=== PATIENT | female | born 1980 | race African-American/Black ===

== ENCOUNTER 2018-05-20 00:56 | Outpatient (CLI) | payer BC ==
[2018-05-20 15:56] LABS: Mean Corpuscular Hemoglobin 25.9 pg (27.0-31.0); Mean Corpuscular Volume 83.7 fL (78.0-98.0); Mean Platelet Volume 9.3 fL (7.4-10.4); Platelet Count 219 thou/uL (130-400); RBC Distribution Width 12.7 % (11.5-14.5); Red Blood Cell (RBC) Count 4.23 mill/uL (4.20-5.40); White Blood Cell (WBC) Count 6.7 thou/uL (4.8-10.8)
== END 2018-05-20 00:57 | disposition home or self-care (01) ==
LOC: LABBT 00:56 → EDSTATUS 15:00
PROVIDERS: ATTEND Obstetrics & Gynecology
DX: Z01.812 Encounter for preprocedural laboratory examination (principal); D25.9 Leiomyoma of uterus, unspecified; N92.0 Excessive and frequent menstruation with regular cycle; R10.2 Pelvic and perineal pain
CPT/HCPCS: 85027; 86850; 86900; 86901

== ENCOUNTER 2018-05-21 05:54 | Inpatient (IN) | payer BC ==
--- NOTE | 2018-05-17 10:53 | HP ---
She is scheduled for surgery on 05/21/2018. HISTORY OF PRESENT ILLNESS: Ms. Boone is a 37-year-old female G3, P2, A1, who has symptomatic uterine fibroids. She has very heavy menstrual bleeding where she does her pad and tampon soakage in 1 hour at times. She is also having significant dysmenorrhea associated with this and also chronic left lower quadrant pain. She has had a CT scan along with an ultrasound confirming her uterus to be 10.7 cm with a 2 cm submucosal fibroid along with an 8 x 6.6 cm left exophytic fibroid. She is desiring definitive surgical therapy. Her past surgical history has been a Lap-Band and Lap BTL along with a laparoscopic cholecystectomy. ALLERGIES: SHE HAS NO KNOWN DRUG ALLERGIES. MEDICATIONS: She does not take any medications regularly except p.r.n. ibuprofen for pain. SOCIAL HISTORY: She is a nonsmoker. FAMILY HISTORY: No significant family history including no ovarian cancer history. OB HISTORY: She has had two spontaneous vaginal deliveries. Most recent Pap smear was normal with negative HPV testing in March 2017. PHYSICAL EXAMINATION: VITAL SIGNS: Her height is 5 feet 2 inches, weight 255. Pulse is 67 and regular, blood pressure 138/84, O2 sats 99%. HEENT: Within normal limits. CHEST: Clear to auscultation. HEART: Regular rate and rhythm. S1 and S2 heart sounds. No murmurs, rubs, or gallops. ABDOMEN: Soft, nontender, well-healed trocar sites from previous surgery. PELVIC: Vulva and vagina had no lesions. Cervix had no lesions. Uterus was enlarged 14-16 week size, mostly with a left posterior lower quadrant fibroid being palpated. There was no adnexal masses. ASSESSMENT: This is a 37-year-old female with symptomatic 14-16 week uterine fibroids including an 8 cm exophytic left lower quadrant fibroid, desiring definitive surgical therapy. PLAN: Plan is to proceed with robotic total laparoscopic hysterectomy with bilateral salpingectomy. Plan for ovarian preservation. We will also remove the specimen via the ExCITE procedure. Risks and benefits of surgery were discussed in detail, set for surgery on 05/21. Job ID: [id number]
[2018-05-20 15:25] VITALS: BMI 47.5
[2018-05-21] MEDS ORDERED: Gabapentin 300 MG CAP ONE (06:10)
[2018-05-21] MEDS ORDERED: CeleCOXIB 100 MG CAP ONE (06:10)
[2018-05-21] MEDS ORDERED: Famotidine/PF 20 mg/2ml Vial ONE (06:11)
[2018-05-21] MEDS ORDERED: ceFAZolin Sodium 2 GM/100 ML BAG ONE (06:11)
[2018-05-21] MEDS ORDERED: Fentanyl 250 MCG/5 ML VIAL ONE (06:27)
[2018-05-21] MEDS ORDERED: Bupivacaine HCl 0.5%/Epinephrine 1:200,000/PF 30 ml Vial ONE (06:37)
[2018-05-21] MEDS ORDERED: Midazolam HCl 2 mg/2 ml Vial ONE (06:56)
[2018-05-21] MEDS ORDERED: Scopolamine 1.5 mg/72 hour Patch ONE (06:56)
[2018-05-21] MEDS ORDERED: Promethazine HCl 25 MG/ML VIAL SLOW IVP PRN (08:09)
[2018-05-21] MEDS ORDERED: Promethazine HCl 25 MG/ML VIAL IM PRN ×2 (08:09→12:42)
[2018-05-21] MEDS ORDERED: Ondansetron HCl/PF 4 MG/2 ML Vial IVP PRN (08:09)
[2018-05-21] MEDS ORDERED: Meperidine HCl/PF 25 MG/ML VIAL SLOW IVP PRN (08:09)
[2018-05-21] MEDS ORDERED: Fentanyl 100 MCG/2 ML VIAL ONE ×2 (09:35→11:33)
[2018-05-21] MEDS ORDERED: traMADol HCl 50 MG TAB PO PRN (12:42)
[2018-05-21] MEDS ORDERED: Morphine 4 MG/ML VIAL SLOW IVP PRN ×2 (12:42→16:12)
[2018-05-21] MEDS ORDERED: diphenhydrAMINE 25 MG CAP PO PRN (12:42)
[2018-05-21] MEDS ORDERED: Zolpidem Tartrate 5 MG TAB PO PRN (12:42)
[2018-05-21] MEDS ORDERED: Ondansetron PF 4 MG/2 ML Vial IVP PRN (12:42)
[2018-05-21] MEDS ORDERED: Simethicone Chewable 80 MG TAB PO PRN (12:42)
[2018-05-21] MEDS ORDERED: Bisacodyl 10 MG SUPP PR PRN (12:42)
[2018-05-21] MEDS ORDERED: Ketorolac Tromethamine 30 MG/ML VIAL IVP SCH (12:45)
--- NOTE | 2018-05-21 12:58 | OP ---
DATE OF PROCEDURE: 05/21/2018 PREOPERATIVE DIAGNOSES: 1. A 37-year-old female with symptomatic uterine fibroids. 2. She has exophytic 8 cm left lower quadrant posterior fibroid with pelvic pain and menorrhagia. POSTOPERATIVE DIAGNOSES: 1. A 37-year-old female with symptomatic uterine fibroids. 2. She has exophytic 8 cm left lower quadrant posterior fibroid with pelvic pain and menorrhagia. PROCEDURES PERFORMED: 1. Robotic total laparoscopic hysterectomy, bilateral salpingectomy. 2. ExCITE removal of the uterine specimen. PIPELINES SUPERVISOR SURGEON: Yecenia Chauhan MD ANESTHESIA: General endotracheal. ESTIMATED BLOOD LOSS: 25 mL. COMPLICATIONS: None. COUNTS: Correct x2. ANTIBIOTICS: 2 g Ancef, on-call to OR. FINDINGS: 1. Normal bilateral fallopian tubes and ovaries. 2. Enlarged uterus with what appeared to be a subserosal 8 cm left posterior fibroid with pelvic adhesions from inflammatory reaction of the fibroid. Status post lysis of adhesions. 3. Clear urine present in Anderson catheter postprocedure and bilateral ureteral peristalsis noted postprocedure. PATHOLOGY: Uterus, cervix, bilateral fallopian tubes, and fibroid. DISPOSITION: Recovery room, stable. DESCRIPTION OF PROCEDURE: The patient previously received informed consent in regard to surgery. She was taken back to the operating room, where she received a general endotracheal anesthetic agent without complications. She was placed in the dorsal lithotomy position with use of Remy stirrups and prepped and draped in usual sterile fashion. At this time, a Anderson catheter was placed. A sidearm speculum was placed in the vagina. Anterior lip of the cervix was grasped with a single-toothed tenaculum and the uterus sounded to 12 cm. A size 10 cm BALWINDER uterine manipulator with a 4.0 cm cup was placed. Tenaculum and speculum were then removed. Attention was then turned to the abdomen, where perspective trocar sites were infiltrated with 0.5% Marcaine with epinephrine. A supraumbilical incision was made 12 mm and a Veress needle was entered into the peritoneal cavity. The abdomen was insufflated with the patient's pressure of 15. After proper entry was confirmed and the 12 mm trocar was placed in the supraumbilical incision with placement of the scope through the trocar sleeve confirming proper entry. An 8 mm right lower quadrant trocar was placed under laparoscopic guidance and in the left lower quadrant, the laparoscope was placed under laparoscopic guidance. I used the Endo Yovanny this time to take down some omental adhesions in the right upper quadrant due to the previous lap band and cholecystectomy to enable us to put the right upper quadrant events and promotions assistant port. This was taken down under direct visualization. Once this was cleared, the 11 mm events and promotions assistant port was placed in the right upper quadrant. We then extended the supraumbilical incision to approximately 2.5 cm and then placed the GelPOINT for the trocar site and then the trocar sleeve was placed through the GelPOINT and then the scope was placed through this and the patient was placed in Trendelenburg position. Robot was docked in usual fashion. Then, I proceeded to carry out the surgery from the operative console while my assistants remained at the bedside. The uterus was elevated from the pelvis. Inspection of the posterior fibroid was confirmed and location of the left ureter was also visualized and its pass was noted. There were filmy adhesions in the posterior aspect of the left uterine fibroid and this was taken down both sharply and bluntly with the monopolar scissors and the bipolar fenestrated cautery with a spreading effect, which fibroid from the left pelvic sidewall. The ureter was noted to be running laterally inferior. Then, continued to dissect the adhesions off the fibroid, mobilizing the fibroid. Then, we took the left fallopian tube off, cauterizing the mesosalpinx, incising with the monopolar scissors and pulled the tube through the right upper quadrant events and promotions assistant port. Then, the left utero-ovarian ligament was coagulated, transected, and then the left round ligament was coagulated and transected. This allowed for then dissection of the broad ligament over the fibroid and both sharply and bluntly enabling mobilization of the uterine fibroid away from the pelvic sidewall and this enabled us to then skeletonized the left uterine vessels that was inferior to this and dropped the vesicouterine peritoneum past the cervical vaginal angle and the cervical cup, which was noted on with the manipulator. The uterus was deflected to the patient's right side, dropping the left pelvic sidewall away from the specimen. Continued skeletonization of the uterine vessels, dropped the fold of peritoneum laterally away from the uterine specimen. The uterine vessels were then coagulated in internal cervical os region on the left side. The right fallopian tube was then grasped by my events and promotions assistant. The mesosalpinx was cauterized and transected and the tube was removed up in the right upper quadrant events and promotions assistant port. Again, the right utero-ovarian ligaments were coagulated and transected. Serial coagulation of the broad ligament hugging the posterior uterus was carried out until the right round ligament was reached. It was coagulated and transected. The anterior leaf of the broad ligament again was entered and the vesicouterine peritoneum was incised in layering technique dropping the bladder atraumatically past the cervical vaginal junction. Again, the right uterine vessels were skeletonized both anteriorly and posteriorly and they were cauterized in the internal cervical os region. Once this had been accomplished, the fibroids had been freed from the pelvic sidewall on its entirety. This allowed for mobilization of the uterus anteriorly, and then creation of the posterior colpotomy was performed from 6 to 3 and 6 to 9 o'clock with the monopolar scissors. The anterior colpotomy was completed from 12 to 3 and 12 to 9 o'clock again coagulating the uterine artery vessels inside the cup for hemostasis. This allowed then for delivery of the specimen and this was taken off the BALWINDER uterine manipulator end and the specimen was placed in the abdominal cavity and the BALWINDER uterine manipulator was pulled out. The vagina was packed to continue the pneumoperitoneum. The vaginal cuff was inspected and cauterized of any remaining oozing areas and monopolar scissor has been switched for a Sha needle boat driver. A Stratafix was then passed into the pelvis by my events and promotions assistant and I closed the vaginal cuff in full-thickness closure starting right angle back to the left angle and back towards the midline with good hemostasis noted. All pedicle sites were inspected after irrigation and confirmed to be hemostatic. Clear urine was draining from the Anderson catheter and bladder was watertight to distention of 300 mL. Bilateral ureteral peristalsis was also visualized on both pelvic sidewalls. The endobag which had been placed when the GelPOINT had been placed in the right upper quadrant was then brought down into the pelvis. The stay closure sutures were then cut by my events and promotions assistant after we aligned the bag in the appropriate position. The specimen was then placed inside the endobag and the pre-tied loop and the string was brought through the loop to secure the specimen by use of the bipolar fenestrated and the needle boat driver. Then, my events and promotions assistant placed a [place] grasper through the GelPOINT and grabbed the closure string from the specimen bag and this was brought up towards the GelPOINT port. We undocked the robot and then the trocar sleeves were removed. The GelPOINT was then taken off in the specimen bag, was then delivered through the fascial defect. We then placed the small Layo O retractor inside the Aces bag to protect the bag while we did the morcellation. The specimen was then morcellated with the C-cutting technique with scalpel in a piecemeal fashion, delivering all the contents and tags inside the bag and then the bag was delivered. The fascial defect in the supraumbilical area was closed with a running 0 Vicryl suture with good approximation of the fascia. The remainder of the trocar sites were then closed with 4-0 Monocryl suture with Dermabond. The surgery was then terminated. No anesthetic or surgical complications. The vaginal cuff was inspected vaginally and was noted to be hemostatic. Job ID: [id number]
[2018-05-21] MEDS: Acetaminophen 1,000 MG in Premix Bag 1 BAG IVPB SCH ×2 (13:01→18:21)
[2018-05-21] MEDS: Lactated Ringer's 1,000 ML IV SCH ×3 (13:01→22:08)
[2018-05-21] MEDS ORDERED: Rocuronium Bromide 10 MG/ML (10ML VIAL) ONE (13:55)
[2018-05-21] MEDS ORDERED: Ondansetron PF 4 MG/2 ML Vial ONE (13:55)
[2018-05-21] MEDS ORDERED: Lidocaine 1% PF 5 ML VIAL ONE (13:55)
[2018-05-21] MEDS ORDERED: Glycopyrrolate 0.2 MG/ML 5 ML SYRINGE ONE (13:55)
[2018-05-21] MEDS ORDERED: Metoclopramide HCl 10 MG/2 ML VIAL ONE (13:55)
[2018-05-21] MEDS ORDERED: PROPOFOL 200 MG/20 ML VIAL ONE (13:55)
[2018-05-21] MEDS ORDERED: Labetalol HCl 100 MG/20 ML VIAL SLOW IVP PRN (17:35)
[2018-05-21] MEDS: Ketorolac Tromethamine 30 MG/ML VIAL IVP SCH (18:18)
[2018-05-21] MEDS: traMADol HCl 50 MG TAB PO PRN (20:41)
[2018-05-22] MEDS: Acetaminophen 1,000 MG in Premix Bag 1 BAG IVPB SCH ×2 (00:31→06:08)
[2018-05-22] MEDS: Ketorolac Tromethamine 30 MG/ML VIAL IVP SCH (00:31)
[2018-05-22] MEDS: traMADol HCl 50 MG TAB PO PRN (04:53)
[2018-05-22 07:07] LABS: Mean Corpuscular HGB CONC 31.7 g/dL (32.0-36.0); Mean Corpuscular Volume 82.2 fL (78.0-98.0); Mean Platelet Volume 9.1 fL (7.4-10.4); Platelet Count 191 thou/uL (130-400); RBC Distribution Width 12.8 % (11.5-14.5); Red Blood Cell (RBC) Count 3.86 mill/uL (4.20-5.40); White Blood Cell (WBC) Count 5.8 thou/uL (4.8-10.8)
[2018-05-22 07:47] VITALS: BP 125/83; TEMP 98.2
[2018-05-22] MEDS ORDERED: Acetaminophen 325 MG TAB PO PRN (08:00)
[2018-05-22] MEDS ORDERED: Ibuprofen 800 MG TAB PO SCH (09:00)
--- NOTE | 2018-05-22 13:02 | DIS ---
DATE OF ADMISSION: 05/21/2018 DATE OF DISCHARGE: 05/22/2018 DIAGNOSES: Symptomatic 14-week uterine fibroids, menorrhagia, and pelvic pain. PROCEDURES PERFORMED: Robotic total laparoscopic hysterectomy, bilateral salpingectomy with extracorporeal C-incision tissue extraction procedure for removal of tissue. SUMMARY OF HOSPITAL COURSE: Ms. Boone is a 37-year-old female, who had a 14-week uterine fibroids that causing menorrhagia and pelvic pain. She underwent definitive surgical therapy on 05/21/2018. Postoperatively, the patient has done well. Vital signs are stable. Hematocrit 31.7%. Postoperatively, she is ambulating, voiding, and tolerating regular diet without difficulty. She is discharged home postop day #1. Discharge medications, tramadol 50 q.6 hours p.r.n. pain, [id number] ibuprofen as directed. She will have a followup in 2 and 6 weeks postop and her pathology is pending at this time. Job ID: [id number]
== END 2018-05-22 10:30 | disposition home or self-care (01) | DRG 743 ==
LOC: SDC 05:54 → EDSTATUS 09:30 → OBSVTOIN 12:07 → 3SE 12:07
PROVIDERS: ADMIT Obstetrics & Gynecology; ATTEND Obstetrics & Gynecology
PROC: 0UT94ZZ Resection of Uterus, Percutaneous Endoscopic Approach (ICD-10-PCS; principal; 2018-05-21)
PROC: 0UT74ZZ Resection of Bilateral Fallopian Tubes, Percutaneous Endoscopic Approach (ICD-10-PCS; 2018-05-21)
PROC: 8E0W4CZ Robotic Assisted Procedure of Trunk Region, Percutaneous Endoscopic Approach (ICD-10-PCS; 2018-05-21)
DX: D25.9 Leiomyoma of uterus, unspecified (principal); N92.0 Excessive and frequent menstruation with regular cycle; R10.2 Pelvic and perineal pain; Z01.812 Encounter for preprocedural laboratory examination
CPT/HCPCS: 36415; 85027; 86850; 86900; 86901; 88307; J0131; J0670; J0690; J1885; J2001; J2250; J2270; J2405; J2704; J2765; J3010; Q9968; S0028

== ENCOUNTER 2021-07-22 13:06 | Outpatient (CLI) | payer BC ==
[2021-07-23 00:01] LABS: SARS-CoV-2 PCR by NAA Not Detected (NotDetected)
== END 2021-07-22 13:07 | disposition home or self-care (01) ==
LOC: LABBT 13:06
PROVIDERS: ATTEND Internal Medicine Gastroenterology
DX: Z20.822 Contact with and (suspected) exposure to COVID-19 (principal)
CPT/HCPCS: U0003; U0005

== ENCOUNTER 2021-07-27 06:01 | Day surgery (SDC) | payer BC ==
[2021-07-25 11:14] VITALS: BMI 58.5
[2021-07-27] MEDS ORDERED: PROPOFOL 200 MG/20 ML VIAL ONE (08:16)
[2021-07-27] MEDS ORDERED: Lidocaine 1% PF 5 ML VIAL ONE (08:16)
== END 2021-07-27 09:18 | disposition home or self-care (01) ==
LOC: SDC 06:01
PROVIDERS: ATTEND Internal Medicine Gastroenterology
PROC: 0D748ZZ Dilation of Esophagogastric Junction, Via Natural or Artificial Opening Endoscopic (ICD-10-PCS; principal; 2021-07-27)
DX: R13.19 Other dysphagia (principal); K21.9 Gastro-esophageal reflux disease without esophagitis; I10 Essential (primary) hypertension; E66.3 Overweight; Z68.43 Body mass index [BMI] 50.0-59.9, adult; Z79.899 Other long term (current) drug therapy
CPT/HCPCS: J2704

== ENCOUNTER 2021-09-27 13:05 | Outpatient (CLI) | payer BC | END 2021-09-27 13:06 | disposition home or self-care (01) | LOC: DTY/OP 13:05 | PROVIDERS: ATTEND Surgery | DX: E66.01 Morbid (severe) obesity due to excess calories (principal); Z68.43 Body mass index [BMI] 50.0-59.9, adult | CPT/HCPCS: 97802 ==

== ENCOUNTER 2021-10-21 07:16 | Outpatient (CLI) | payer BC ==
[2021-10-21 10:38] LABS: #Eosinphils 0.1 10x3/uL (0.0-0.5); #Monocytes 0.5 10x3/uL (0.0-1.1); %Basophils 0.2 % (0.0-2.0); %Eosinophils 1.7 % (0.0-6.0); %Neutrophils 52.9 % (40.0-75.0); Hemoglobin 11.2 g/dL (12.0-15.5); Mean Corpuscular HGB CONC 31.5 g/dL (32.0-36.0); Mean Corpuscular Hemoglobin 24.9 pg (27.0-33.0); Mean Corpuscular Volume 78.9 fl (81.6-98.3); Mean Platelet Volume 12.3 fl (7.4-10.4); Platelet Count 298 10x3/uL (150-450); RBC Distribution Width 15.1 % (11.5-14.5); White Blood Cell (WBC) Count 5.8 10x3/uL (3.5-10.5)
[2021-10-21 10:42] LABS: ALT (SGPT) 23 U/L (8-55); AST (SGOT) 17 U/L (5-34); Alkaline Phosphatase 76 U/L (40-110); Anion Gap 11 mmol/L (10-20); BUN (Urea Nitrogen) 9 mg/dL (7.0-18.7); Bilirubin, Total 0.3 mg/dL (0.2-1.2); Calc. Creatinine Clearance 0 mL/min (70-130); Calcium 9.3 mg/dL (7.8-10.44); Carbon Dioxide 28 mmol/L (22-29); Chloride 101 mmol/L (98-107); Estimated GFR 111; Glucose 82 mg/dL (70-105); Potassium 4.3 mmol/L (3.5-5.1); Sodium 136 mmol/L (136-145)
[2021-10-21 14:17] LABS: Hemoglobin A1c 5.6 % (4.0-6.0)
== END 2021-10-21 07:17 | disposition home or self-care (01) ==
LOC: LABBT 07:16
PROVIDERS: ATTEND Surgery
DX: Z01.818 Encounter for other preprocedural examination (principal); E66.01 Morbid (severe) obesity due to excess calories; Z20.822 Contact with and (suspected) exposure to COVID-19
CPT/HCPCS: 71046; 80053; 83036; 85025; 87811; 93005; 93010

== ENCOUNTER 2021-10-21 08:00 | Inpatient (IN) | payer BC ==
[2021-10-26] MEDS ORDERED: Heparin 5,000 UNITS/ML VIAL ONE (07:38)
[2021-10-26] MEDS ORDERED: Lidocaine 1% MPF 2 ML VIAL ONE (07:39)
[2021-10-26] MEDS ORDERED: Bupivacaine/Epinephrine 0.25% 30 ML VIAL ONE (09:06)
[2021-10-26] MEDS ORDERED: fentaNYL Citrate/PF 100 MCG/2 ML SYRINGE ONE (09:09)
[2021-10-26] MEDS ORDERED: CEFAZOLIN 2 GM VIAL ONE (09:16)
[2021-10-26] MEDS ORDERED: Sodium Chloride 0.9% 100 ML ONE (09:16)
[2021-10-26] MEDS ORDERED: ePHEDrine 50 MG/ML VIAL ONE (09:22)
[2021-10-26] MEDS ORDERED: Ondansetron PF 4 MG/2 ML Vial ONE (09:22)
[2021-10-26] MEDS ORDERED: Glycopyrrolate 0.2 MG/ML 5 ML SYRINGE ONE (09:22)
[2021-10-26] MEDS ORDERED: Rocuronium Bromide 10 MG/ML (10ML VIAL) ONE (09:22)
[2021-10-26] MEDS ORDERED: Dexamethasone 20 MG/5 ML VIAL ONE (09:22)
[2021-10-26] MEDS ORDERED: Succinylcholine 200 MG/10 ml SYRINGE FS ONE (09:22)
[2021-10-26] MEDS ORDERED: PROPOFOL 200 MG/20 ML VIAL ONE (09:22)
[2021-10-26] MEDS ORDERED: Phenylephrine 10 MG/ML VIAL ONE (09:22)
[2021-10-26] MEDS ORDERED: Lidocaine 1% PF 5 ML VIAL ONE (09:22)
[2021-10-26] MEDS ORDERED: Neostigmine Methylsulfate 3 MG/3 ML SYRINGE ONE (09:22)
[2021-10-26] MEDS ORDERED: HYDROmorphone 2 MG/ML VIAL SLOW IVP PRN (09:58)
[2021-10-26] MEDS ORDERED: Promethazine HCl 25 MG/ML VIAL IM PRN (09:58)
[2021-10-26] MEDS ORDERED: Promethazine HCl 25 MG/ML VIAL IVPB PRN (09:58)
[2021-10-26] MEDS ORDERED: Iopamidol 370 76% 100 ML VIAL ONE (10:08)
[2021-10-26] MEDS ORDERED: Morphine 2 MG/ML VIAL SLOW IVP PRN (11:31)
[2021-10-26] MEDS ORDERED: Dextrose 5% in Water 1,000 ML IV PRN (11:31)
[2021-10-26] MEDS ORDERED: hydrALAZINE 20 MG/ML VIAL SLOW IVP PRN (11:31)
[2021-10-26] MEDS ORDERED: Dextrose 50% Abboject 50 ML SYRINGE SLOW IVP PRN (11:31)
[2021-10-26] MEDS ORDERED: Fentanyl 100 MCG/2 ML VIAL ONE ×2 (11:46→12:24)
[2021-10-26] MEDS ORDERED: Ketorolac Tromethamine 30 MG/ML VIAL ONE (12:36)
[2021-10-26] MEDS: Ketorolac Tromethamine 30 MG/ML VIAL IVP SCH ×2 (13:02→18:38)
[2021-10-26] MEDS: Morphine 4 MG/ML VIAL SLOW IVP PRN ×3 (13:47→18:41)
[2021-10-26 14:30] VITALS: BMI 58.7
[2021-10-26] MEDS ORDERED: Mag-Al 1200 mg/1200 mg/30 ML UDCUP PO PRN (15:30)
[2021-10-26] MEDS: Ondansetron PF 4 MG/2 ML Vial IVP PRN (16:10)
[2021-10-26] MEDS: D5 1/2 NS w/20 mEq KCL 1,000 ML IV SCH (16:10)
[2021-10-26] MEDS: Simethicone Chewable 80 MG TAB PO PRN ×2 (16:10→18:42)
[2021-10-26] MEDS: CEFAZOLIN 2 GM in Sodium Chloride 0.9% 100 ML IVPB SCH (18:38)
[2021-10-26] MEDS: Promethazine HCl 25 MG/ML VIAL IM PRN (18:46)
[2021-10-26 20:03] LABS: #Basophils 0.1 thou/uL (0.0-0.2); #Lymphocytes 0.7 thou/uL (1.20-3.40); #Monocytes 0.2 thou/uL (0.11-0.59); #Neutrophils 11.8 thou/uL (1.40-6.50); %Basophils 0.6 % (0.0-1.0); %Eosinophils 0.1 % (0.0-10.0); %Lymphocytes 5.5 % (21.0-51.0); %Monocytes 1.5 % (0.0-10.0); %Neutrophils 92.3 % (42.0-75.0); Hemoglobin 13.1 g/dL (12.0-16.0); Mean Corpuscular HGB CONC 31.2 g/dL (32.0-36.0); Mean Corpuscular Hemoglobin 25.6 pg (27.0-31.0); Mean Platelet Volume 9.6 fL (7.4-10.4); Platelet Count 241 thou/uL (130-400); RBC Distribution Width 13.9 % (11.5-14.5); Red Blood Cell (RBC) Count 5.11 mill/uL (4.20-5.40); White Blood Cell (WBC) Count 12.8 thou/uL (4.8-10.8)
[2021-10-26 20:21] LABS: Anion Gap 17 mmol/L (10-20); BUN (Urea Nitrogen) 9 mg/dL (7.0-18.7); Calc. Creatinine Clearance 216 mL/min (70-130); Carbon Dioxide 21 mmol/L (22-29); Chloride 98 mmol/L (98-107); Estimated GFR 97; Glucose 153 mg/dL (70-105); Potassium 3.7 mmol/L (3.5-5.1); Sodium 132 mmol/L (136-145)
[2021-10-26] MEDS ORDERED: Sodium Chloride 0.9% 500 ML IV SCH (20:45)
[2021-10-26] MEDS ORDERED: Lisinopril 20 MG TAB PO SCH (20:45)
[2021-10-26] MEDS ORDERED: Metoprolol Tartrate 5 MG/5 ML VIAL IVP PRN (20:48)
[2021-10-26] MEDS ORDERED: Piperacillin/Tazobactam 3.375 GM in Sodium Chloride 0.9% 100 ML IVPB SCH (21:30)
[2021-10-26 21:36] LABS: Lactic Acid 2.3 mmol/L (0.5-2.2)
[2021-10-26 22:02] LABS: Albumin 4.1 g/dL (3.5-5.0)
[2021-10-26 22:05] LABS: Protein, Total 8.4 g/dL (6.0-8.3)
[2021-10-26 22:06] LABS: Bilirubin, Total 0.3 mg/dL (0.2-1.2)
[2021-10-26 22:10] LABS: ALT (SGPT) 53 U/L (8-55); AST (SGOT) 74 U/L (5-34); Bilirubin, Direct 0.2 mg/dL (0.1-0.3)
[2021-10-26 22:47] LABS: Troponin I Less than 0.010 ng/mL (< 0.028)
[2021-10-26 23:29] LABS: Alkaline Phosphatase 100 U/L (40-110)
[2021-10-26] MEDS ORDERED: Pantoprazole 40 MG VIAL IVP SCH (23:45)
[2021-10-27] MEDS: Morphine 4 MG/ML VIAL SLOW IVP PRN ×8 (00:02→23:15)
[2021-10-27] MEDS: Ondansetron PF 4 MG/2 ML Vial IVP PRN ×3 (00:02→20:06)
[2021-10-27 01:08] LABS: Lactic Acid 1.4 mmol/L (0.5-2.2)
[2021-10-27 01:19] LABS: Troponin I Less than 0.010 ng/mL (< 0.028)
[2021-10-27] MEDS: CEFAZOLIN 2 GM in Sodium Chloride 0.9% 100 ML IVPB SCH (02:28)
[2021-10-27 02:53] LABS: Bacteria/HPF None Seen HPF (None Seen); Bilirubin Negative (Negative); Blood, Urine Trace (Negative); Clarity Clear (Clear); Glucose, Urine (Dipstick) Normal (Negative); Ketone, Urine 10 mg/dL (Negative); Leukocyte Negative Leu/uL (Negative); Nitrite Negative (Negative); Protein, Urine (Dipstick) Negative (Neg-Trace); Specific Gravity, Urine 1.024 (1.002-1.036); Squamous Epithelial None Seen HPF (0-3); Urobilinogen Normal mg/dL (Less than 2); WBC/HPF 0-3 HPF (0-3)
[2021-10-27] MEDS: Piperacillin/Tazobactam 3.375 GM in Sodium Chloride 0.9% 100 ML IVPB SCH ×3 (03:13→17:55)
[2021-10-27] MEDS ORDERED: Aspirin 325 mg Enteric Coated Tablet PO SCH (03:46)
[2021-10-27] MEDS ORDERED: Metoprolol Tartrate 5 MG/5 ML VIAL IVP PRN (03:50)
[2021-10-27] MEDS: D5 1/2 NS w/20 mEq KCL 1,000 ML IV SCH ×4 (04:04→23:22)
[2021-10-27] MEDS: Promethazine HCl 25 MG/ML VIAL IM PRN ×2 (04:14→17:49)
[2021-10-27 05:01] LABS: #Lymphocytes 1.4 thou/uL (1.20-3.40); #Monocytes 0.9 thou/uL (0.11-0.59); %Eosinophils 0.1 % (0.0-10.0); %Lymphocytes 10.5 % (21.0-51.0); %Monocytes 6.9 % (0.0-10.0); %Neutrophils 82.5 % (42.0-75.0); Hemoglobin 12.3 g/dL (12.0-16.0); Mean Corpuscular HGB CONC 31.6 g/dL (32.0-36.0); Mean Corpuscular Hemoglobin 25.6 pg (27.0-31.0); Mean Platelet Volume 9.9 fL (7.4-10.4); Platelet Count 268 thou/uL (130-400); RBC Distribution Width 13.9 % (11.5-14.5); Red Blood Cell (RBC) Count 4.82 mill/uL (4.20-5.40); White Blood Cell (WBC) Count 13.3 thou/uL (4.8-10.8)
[2021-10-27 05:19] LABS: Anion Gap 16 mmol/L (10-20); BUN (Urea Nitrogen) 6 mg/dL (7.0-18.7); Calc. Creatinine Clearance 213 mL/min (70-130); Calcium 9.4 mg/dL (7.8-10.44); Carbon Dioxide 23 mmol/L (22-29); Chloride 100 mmol/L (98-107); Estimated GFR 96; Glucose 113 mg/dL (70-105); Potassium 3.7 mmol/L (3.5-5.1); Sodium 135 mmol/L (136-145)
[2021-10-27 05:25] LABS: Troponin I Less than 0.010 ng/mL (< 0.028)
[2021-10-27] MEDS ORDERED: Ketorolac Tromethamine 30 MG/ML VIAL IVP SCH (06:15)
[2021-10-27] MEDS ORDERED: Morphine 4 MG/ML VIAL SLOW IVP SCH (07:30)
[2021-10-27] MEDS: Pantoprazole 40 MG VIAL IVP SCH (08:23)
[2021-10-27] MEDS: Enoxaparin Sodium 40 MG/0.4 ML SYRINGE SC SCH (08:23)
[2021-10-27] MEDS ORDERED: Pantoprazole 40 MG VIAL IVP SCH (09:00)
[2021-10-27] MEDS: Enalaprilat Dihydrate 1.25 MG/ML VIAL SLOW IVP SCH ×3 (11:47→23:16)
[2021-10-27] MEDS: diphenhydrAMINE 50 MG/ML VIAL IVP PRN (20:06)
[2021-10-28] MEDS: Morphine 4 MG/ML VIAL SLOW IVP PRN ×6 (01:59→21:32)
[2021-10-28] MEDS: Piperacillin/Tazobactam 3.375 GM in Sodium Chloride 0.9% 100 ML IVPB SCH ×3 (01:59→18:30)
[2021-10-28] MEDS: diphenhydrAMINE 50 MG/ML VIAL IVP PRN ×2 (01:59→20:23)
[2021-10-28] MEDS: D5 1/2 NS w/20 mEq KCL 1,000 ML IV SCH ×3 (03:05→21:43)
[2021-10-28 04:28] LABS: #Eosinphils 0.4 thou/uL (0.0-0.7); #Lymphocytes 2.2 thou/uL (1.20-3.40); #Monocytes 0.7 thou/uL (0.11-0.59); #Neutrophils 5.5 thou/uL (1.40-6.50); %Basophils 0.2 % (0.0-1.0); %Eosinophils 4.2 % (0.0-10.0); %Lymphocytes 25.3 % (21.0-51.0); %Monocytes 7.6 % (0.0-10.0); %Neutrophils 62.6 % (42.0-75.0); Hemoglobin 11.2 g/dL (12.0-16.0); Mean Corpuscular HGB CONC 31.5 g/dL (32.0-36.0); Mean Corpuscular Hemoglobin 25.6 pg (27.0-31.0); Mean Corpuscular Volume 81.2 fL (78.0-98.0); Mean Platelet Volume 9.7 fL (7.4-10.4); Platelet Count 233 thou/uL (130-400); Red Blood Cell (RBC) Count 4.38 mill/uL (4.20-5.40); White Blood Cell (WBC) Count 8.8 thou/uL (4.8-10.8)
[2021-10-28 04:35] LABS: Hemoglobin A1c 5.5 % (4.0-6.0)
[2021-10-28 04:50] LABS: Anion Gap 14 mmol/L (10-20); BUN (Urea Nitrogen) 7 mg/dL (7.0-18.7); Calc. Creatinine Clearance 213 mL/min (70-130); Calcium 8.9 mg/dL (7.8-10.44); Carbon Dioxide 23 mmol/L (22-29); Chloride 105 mmol/L (98-107); Estimated GFR 96; Glucose 102 mg/dL (70-105); Potassium 3.7 mmol/L (3.5-5.1); Sodium 138 mmol/L (136-145)
[2021-10-28] MEDS: Enalaprilat Dihydrate 1.25 MG/ML VIAL SLOW IVP SCH ×4 (05:51→23:51)
[2021-10-28] MEDS: Enoxaparin Sodium 40 MG/0.4 ML SYRINGE SC SCH (09:17)
[2021-10-28] MEDS: Pantoprazole 40 MG VIAL IVP SCH (09:17)
[2021-10-28] MEDS: Aspirin 81 mg Enteric Coated Tablet PO SCH (09:17)
[2021-10-28] MEDS: Hydrocodone-Acetamin 15 ML UDCUP PO PRN (20:22)
[2021-10-28] MEDS: Ondansetron PF 4 MG/2 ML Vial IVP PRN (20:23)
[2021-10-29] MEDS: Hydrocodone-Acetamin 15 ML UDCUP PO PRN ×5 (00:34→22:20)
[2021-10-29] MEDS: Piperacillin/Tazobactam 3.375 GM in Sodium Chloride 0.9% 100 ML IVPB SCH ×3 (00:58→17:44)
[2021-10-29] MEDS: Enalaprilat Dihydrate 1.25 MG/ML VIAL SLOW IVP SCH ×4 (05:03→17:44)
[2021-10-29] MEDS: D5 1/2 NS w/20 mEq KCL 1,000 ML IV SCH ×3 (05:04→14:05)
[2021-10-29 05:24] LABS: #Basophils 0.1 thou/uL (0.0-0.2); #Eosinphils 0.3 thou/uL (0.0-0.7); #Lymphocytes 2.3 thou/uL (1.20-3.40); #Monocytes 0.6 thou/uL (0.11-0.59); #Neutrophils 3.5 thou/uL (1.40-6.50); %Basophils 0.8 % (0.0-1.0); %Eosinophils 4.7 % (0.0-10.0); %Monocytes 8.4 % (0.0-10.0); %Neutrophils 52.1 % (42.0-75.0); Hemoglobin 10.1 g/dL (12.0-16.0); Mean Corpuscular HGB CONC 31.7 g/dL (32.0-36.0); Mean Corpuscular Hemoglobin 26.1 pg (27.0-31.0); Mean Corpuscular Volume 82.3 fL (78.0-98.0); Mean Platelet Volume 9.9 fL (7.4-10.4); Platelet Count 214 thou/uL (130-400); Red Blood Cell (RBC) Count 3.87 mill/uL (4.20-5.40); White Blood Cell (WBC) Count 6.6 thou/uL (4.8-10.8)
[2021-10-29 05:42] LABS: Anion Gap 13 mmol/L (10-20); BUN (Urea Nitrogen) 6 mg/dL (7.0-18.7); Calc. Creatinine Clearance 229 mL/min (70-130); Calcium 8.4 mg/dL (7.8-10.44); Carbon Dioxide 24 mmol/L (22-29); Chloride 106 mmol/L (98-107); Estimated GFR 105; Glucose 97 mg/dL (70-105); Magnesium 1.7 mg/dL (1.6-2.6); Potassium 3.5 mmol/L (3.5-5.1); Sodium 139 mmol/L (136-145)
[2021-10-29] MEDS: Aspirin 81 mg Enteric Coated Tablet PO SCH (09:54)
[2021-10-29] MEDS: Enoxaparin Sodium 40 MG/0.4 ML SYRINGE SC SCH (09:55)
[2021-10-29] MEDS: Ondansetron PF 4 MG/2 ML Vial IVP PRN (09:55)
[2021-10-29] MEDS: Pantoprazole 40 MG VIAL IVP SCH (09:55)
[2021-10-29] MEDS: diphenhydrAMINE 50 MG/ML VIAL IVP PRN (19:44)
[2021-10-29] MEDS: Simethicone Chewable 80 MG TAB PO PRN (19:44)
[2021-10-30] MEDS: Piperacillin/Tazobactam 3.375 GM in Sodium Chloride 0.9% 100 ML IVPB SCH ×3 (00:13→18:31)
[2021-10-30] MEDS: Enalaprilat Dihydrate 1.25 MG/ML VIAL SLOW IVP SCH ×4 (00:14→18:31)
[2021-10-30] MEDS: Morphine 4 MG/ML VIAL SLOW IVP PRN ×2 (00:14→04:01)
[2021-10-30] MEDS ORDERED: Morphine 4 MG/ML VIAL SLOW IVP PRN (08:46)
[2021-10-30] MEDS ORDERED: Benzonatate 100 MG CAP PO SCH (09:00)
[2021-10-30] MEDS ORDERED: Mineral Oil ENEMA PR SCH (09:00)
[2021-10-30] MEDS: Enoxaparin Sodium 40 MG/0.4 ML SYRINGE SC SCH (09:23)
[2021-10-30] MEDS: Guaifenesin DM 100-10/5 ML UDCUP PO PRN ×3 (09:23→20:52)
[2021-10-30] MEDS: Aspirin 81 mg Enteric Coated Tablet PO SCH (09:23)
[2021-10-30] MEDS: Hydrocodone-Acetamin 15 ML UDCUP PO PRN ×3 (09:23→19:37)
[2021-10-30] MEDS: Pantoprazole 40 MG VIAL IVP SCH (09:23)
[2021-10-30] MEDS ORDERED: Polyethylene Glycol 3350 17 GM Packet PO SCH (10:00)
[2021-10-30] MEDS: Ondansetron PF 4 MG/2 ML Vial IVP PRN (18:31)
[2021-10-30] MEDS: Simethicone Chewable 80 MG TAB PO PRN (20:49)
[2021-10-30] MEDS: diphenhydrAMINE 50 MG/ML VIAL IVP PRN (20:52)
[2021-10-31] MEDS: Guaifenesin DM 100-10/5 ML UDCUP PO PRN (00:30)
[2021-10-31] MEDS: Enalaprilat Dihydrate 1.25 MG/ML VIAL SLOW IVP SCH ×2 (00:30→06:18)
[2021-10-31] MEDS: Piperacillin/Tazobactam 3.375 GM in Sodium Chloride 0.9% 100 ML IVPB SCH ×2 (02:19→08:42)
[2021-10-31] MEDS: Aspirin 81 mg Enteric Coated Tablet PO SCH (08:44)
[2021-10-31] MEDS: Enoxaparin Sodium 40 MG/0.4 ML SYRINGE SC SCH (08:44)
[2021-10-31] MEDS: Pantoprazole 40 MG VIAL IVP SCH (08:46)
[2021-10-31] MEDS ORDERED: Polyethylene Glycol 3350 17 GM Packet PO SCH (09:00)
[2021-10-31] MEDS: Hydrocodone-Acetamin 15 ML UDCUP PO PRN (10:27)
[2021-10-31 10:41] VITALS: TEMP 98
[2021-10-31 12:09] VITALS: BP 134/80
== END 2021-10-31 12:29 | disposition home or self-care (01) | DRG 619 ==
LOC: SURG A 10-26 07:06 → EDSTATUS 10-26 08:00 → SURG A 10-26 13:41 → 2NO 10-27 05:47
PROVIDERS: ADMIT Surgery; ATTEND Student in an Organized Health Care Education/Training Program
PROC: 0DB64Z3 Excision of Stomach, Percutaneous Endoscopic Approach, Vertical (ICD-10-PCS; principal; 2021-10-26)
PROC: 8E0W4CZ Robotic Assisted Procedure of Trunk Region, Percutaneous Endoscopic Approach (ICD-10-PCS; 2021-10-26)
PROC: 3E03329 Introduction of Other Anti-infective into Peripheral Vein, Percutaneous Approach (ICD-10-PCS; 2021-10-26)
DX: E66.01 Morbid (severe) obesity due to excess calories (principal); A41.9 Sepsis, unspecified organism; J18.9 Pneumonia, unspecified organism; E87.2 Acidosis; Z20.822 Contact with and (suspected) exposure to COVID-19; I10 Essential (primary) hypertension; K21.9 Gastro-esophageal reflux disease without esophagitis; R13.10 Dysphagia, unspecified; Z79.899 Other long term (current) drug therapy; Z90.49 Acquired absence of other specified parts of digestive tract; Z98.890 Other specified postprocedural states; Z90.710 Acquired absence of both cervix and uterus; Z82.49 Family history of ischemic heart disease and other diseases of the circulatory system; Z98.84 Bariatric surgery status
CPT/HCPCS: 36415; 36416; 71275; 74177; 80048; 80076; 81001; 83036; 83605; 83735; 83880; 84484; 85025; 87040; 88307; 88342; 93005; 93010; 93306; C1713; C9113; J0360; J0690; J1100; J1200; J1644; J1650; J1885; J2270; J2370; J2405; J2543; J2550; J2704; J3010; J3480; J3490; Q9967

== ENCOUNTER 2022-04-10 18:39 | Emergency (ER) | payer BC ==
[2022-04-10] MEDS ORDERED: Acetaminophen/Codeine 30-300mg Tablet ONE (19:38)
== END 2022-04-10 19:45 | disposition home or self-care (01) ==
LOC: ERS 18:39
DX: J18.9 Pneumonia, unspecified organism (principal); R91.8 Other nonspecific abnormal finding of lung field; I10 Essential (primary) hypertension
CPT/HCPCS: 99284

== ENCOUNTER 2022-12-13 15:42 | Outpatient (CLI) | payer BC | END 2022-12-13 15:43 | disposition home or self-care (01) | LOC: ULT 15:42 | PROVIDERS: ATTEND Obstetrics & Gynecology | DX: L67.8 Other hair color and hair shaft abnormalities (principal); N83.202 Unspecified ovarian cyst, left side | CPT/HCPCS: 76856 ==

== ENCOUNTER 2024-02-12 06:39 | Day surgery (SDC) | payer BC ==
[2024-02-11 11:33] VITALS: BMI 44.9
[2024-02-12] MEDS ORDERED: Midazolam HCl 2 mg/2 ml Vial ONE (06:40)
[2024-02-12] MEDS ORDERED: fentaNYL 50 mcg/mL 1 mL Vial ONE (06:40)
[2024-02-12] MEDS ORDERED: GLYCOPYRROLATE/PF 0.2 MG/ML VIAL ONE (06:40)
[2024-02-12] MEDS ORDERED: PHENYLEPHRINE-NS 100 MCG/ML 10 ML SYRINGE ONE (06:41)
[2024-02-12] MEDS ORDERED: PROPOFOL 20 ML ONE (06:52)
[2024-02-12] MEDS ORDERED: Lidocaine 1% PF 5 ML VIAL ONE (08:09)
== END 2024-02-12 09:18 | disposition home or self-care (01) ==
LOC: SDC 06:39
PROVIDERS: ATTEND Internal Medicine Gastroenterology
PROC: 0DB68ZX Excision of Stomach, Via Natural or Artificial Opening Endoscopic, Diagnostic (ICD-10-PCS; principal; 2024-02-12)
PROC: 0DJD8ZZ Inspection of Lower Intestinal Tract, Via Natural or Artificial Opening Endoscopic (ICD-10-PCS; principal; 2024-02-12)
DX: K29.50 Unspecified chronic gastritis without bleeding (principal); B96.81 Helicobacter pylori [H. pylori] as the cause of diseases classified elsewhere; K44.9 Diaphragmatic hernia without obstruction or gangrene; K21.9 Gastro-esophageal reflux disease without esophagitis; I10 Essential (primary) hypertension; J45.909 Unspecified asthma, uncomplicated; D64.9 Anemia, unspecified; Z98.84 Bariatric surgery status; Z90.49 Acquired absence of other specified parts of digestive tract; Z90.710 Acquired absence of both cervix and uterus; Z79.899 Other long term (current) drug therapy
CPT/HCPCS: 88305; 88342; J2250; J2704; J3010; J3490